=== PATIENT | male | born 1950 | race Caucasian/White ===

== ENCOUNTER 2019-03-14 15:22 | Emergency (ER) | payer OTHER ==
[~2019-03-14] VITALS: Ht 172.7 cm; Wt 108.9 kg
[2019-03-14 15:40] VITALS: BP_SYST 114
--- NOTE | 2019-03-14 16:58 | NUR ---
Patient to ER bed 04 to gown for evaluation. Side rails up.
--- NOTE | 2019-03-14 17:00 | NUR ---
ER at bedside examining patient.
--- NOTE | 2019-03-14 17:15 | NUR ---
Patient presented to ER with C/O intermittent dizziness x 2 months. Patient A&Ox4, afebrile, skin pink &warm, cap refill <3, denies pain at this time, denied dizzines at this time, no N/V/D. Patient states he has had x2 episodes of dizziness today. Pstates intermittent dizziness x2 months, Pt seen by PMD consults arranged. Patient has hx of diabetes, HTN, and neuropathy.
[2019-03-14] MEDS ORDERED: IOHEXOL 350 mgI/mL, 150 ML INFUS..BTL IV ONE (17:22)
[2019-03-14 17:23] LABS: BASOPHILS # (AUTO) 0.1 K/uL (0.0-0.2); BASOPHILS % (AUTO) 1.2 % (0.0-2.0); EOSINOPHILS # (AUTO) 0.2 K/uL (0.0-0.4); EOSINOPHILS % (AUTO) 2.5 % (0.0-4.0); HEMATOCRIT 45.7 % (36-54); HEMOGLOBIN 15.2 g/dL (14.0-18.0); LYMPHOCYTES # (AUTO) 2.6 K/uL (1.0-5.5); LYMPHOCYTES % (AUTO) 42.4 % (20.5-51.5); MEAN CORPUSCULAR HEMOGLOBIN 31 pg (27-31); MEAN CORPUSCULAR HGB CONC 33 % (32-36); MEAN CORPUSCULAR VOLUME 93 fL (79.0-98.0); MONOCYTES # (AUTO) 0.6 K/uL (0.0-1.0); MONOCYTES % (AUTO) 9.9 % (1.7-9.3); NEUTROPHILS # (AUTO) 2.7 K/uL (1.8-7.7); PLATELET COUNT (AUTO) 172 K/uL (130-430); RED BLOOD CELL COUNT(AUTO) 4.94 MIL/uL (4.2-6.2); WHITE BLOOD COUNT (AUTO) 6.2 K/uL (4.8-10.8)
[2019-03-14 17:36] LABS: PROTHROMBIN TIME 9.6 SECS (9.5-12.5)
[2019-03-14 17:44] LABS: ALBUMIN 3.9 g/dL (3.4-4.8); CALCIUM 9.3 mg/dL (8.4-11.0); CREATININE 1.1 mg/dL (0.55-1.30); POTASSIUM 3.6 mmol/L (3.5-5.1); TOTAL BILIRUBIN 0.3 mg/dL (0.0-1.0)
--- NOTE | 2019-03-14 17:45 | NUR ---
CT consent obtained. Patient to Radiology with staff for CT
--- NOTE | 2019-03-14 18:24 | NUR ---
Note undone in EDM - 03/14/19 at 1837 by SDEDTDigna Patient to be transferred to [facility]. Is being transferred due to higher level of care. Receiving facility has accepting physician and available space. ER physician has signed transfer form. Patient or responsible green party has agreed to transfer and signed form. Patient belongings inventoried and will be sent with patient. Copy of nursing notes, lab reports, EKG, Physicians Orders and X-rays to be sent with patient. Report called to Delmy CHÁVEZ at receiving facility. Receiving physician is [facility] has been called for transfer. ETA is 90 min.
--- NOTE | 2019-03-14 18:35 | NUR ---
Patient to ER bed 4 from radiology via [facility].
[2019-03-14 19:12] VITALS: BP_SYST 131
--- NOTE | 2019-03-14 19:16 | NUR ---
Patient given written and verbal discharge instructions and verbalizes understanding. ER MD discussed with patient the results and treatment provided. Patient in stable condition. ID arm band removed. IV catheter removed intact and dressing applied, no active bleeding. Rx of Eliquis given. Patient educated on pain management and to follow up with PMD. Pain Scale 0/10. Opportunity for questions provided and answered. Medication side effect fact sheet provided.
== END 2019-03-14 19:16 | disposition home or self-care (01) ==
LOC: SED 15:22
DX: G45.0 Vertebro-basilar artery syndrome (principal); R42 Dizziness and giddiness; E11.9 Type 2 diabetes mellitus without complications; I10 Essential (primary) hypertension
CPT/HCPCS: 36415; 70450; 70496; 70498; 71045; 80053; 83880; 84484; 85025; 85379; 85610; 85730; 99284; Q9967; 71275

== ENCOUNTER 2019-07-10 19:13 | Inpatient (IN) | payer OTHER ==
[~2019-07-10] VITALS: Ht 172.7 cm; Wt 113.4 kg
[2019-07-10 20:05] VITALS: BP_SYST 162
--- NOTE | 2019-07-10 20:10 | NUR ---
Patient triaged and placed in waiting room. VSS and patient appears in no acute distress at this time. Accompanied by partner , awaiting available bed, and MD notified of need for MSE.
--- NOTE | 2019-07-10 22:58 | NUR ---
Patient to ER bed H1 to gown for evaluation. Side rails up.
--- NOTE | 2019-07-10 23:15 | NUR ---
Patient complains "gangrene" wound to second digit of right foot x 1 week. Pt states he has not been controlling his blood sugar and believes that's why his foot has been getting infected. Per patient, He noticed that there was a blister then progressively got worse. Pt used topical ointment with no healing. No other injuries/complaints per patient or noted.
--- NOTE | 2019-07-10 23:40 | NUR ---
ER Dr. Ramirez at bedside examining patient.
[2019-07-11 00:17] LABS: BASOPHILS % (AUTO) 0.4 % (0.0-2.0); EOSINOPHILS # (AUTO) 0.4 K/uL (0.0-0.4); EOSINOPHILS % (AUTO) 3.3 % (0.0-4.0); HEMATOCRIT 41.4 % (36-54); HEMOGLOBIN 13.5 g/dL (14.0-18.0); LYMPHOCYTES # (AUTO) 2.3 K/uL (1.0-5.5); LYMPHOCYTES % (AUTO) 19.8 % (20.5-51.5); MEAN CORPUSCULAR HEMOGLOBIN 31 pg (27-31); MEAN CORPUSCULAR HGB CONC 33 % (32-36); MEAN CORPUSCULAR VOLUME 96 fL (79.0-98.0); MONOCYTES % (AUTO) 9.1 % (1.7-9.3); NEUTROPHILS # (AUTO) 7.8 K/uL (1.8-7.7); NEUTROPHILS % (AUTO) 67.4 % (40.0-70.0); PLATELET COUNT (AUTO) 227 K/uL (130-430); RED CELL DISTRIBUTION WIDTH 13.6 % (9.0-15.0); WHITE BLOOD COUNT (AUTO) 11.5 K/uL (4.8-10.8)
[2019-07-11 00:36] LABS: CALCIUM 9.3 mg/dL (8.4-11.0); POTASSIUM 3.8 mmol/L (3.5-5.1)
[2019-07-11 00:38] LABS: PROTHROMBIN TIME 9.9 SECS (9.5-12.5)
[2019-07-11 00:42] LABS: ALBUMIN 3.5 g/dL (3.4-4.8); TOTAL BILIRUBIN 0.5 mg/dL (0.0-1.0)
[2019-07-11 00:56] LABS: BILIRUBIN,URINE NEGATIVE (NEGATIVE); BLOOD, URINE NEGATIVE (NEGATIVE); CLARITY/URINE CLEAR (CLEAR); COLOR,URINE YELLOW (YELLOW); GLUCOSE,URINE TRACE (NEGATIVE); KETONES,URINE NEGATIVE (NEGATIVE); LEUKOCYTE ESTERASE ,URINE NEGATIVE (NEGATIVE); NITRITE, URINE NEGATIVE (NEGATIVE); PROTEIN URINE TRACE (NEGATIVE); UROBILINOGEN,URINE 0.2 (0.2-1.0)
[2019-07-11 01:06] LABS: BACTERIA,URINE FEW /HPF (None Seen); RBC,URINE 0-3 /HPF (0-3); WBC,URINE 0-3 /HPF (0-3)
[2019-07-11] MEDS ORDERED: LISI10TA5 PO (02:33)
[2019-07-11] MEDS ORDERED: GLIM2TAB2 PO (02:33)
[2019-07-11] MEDS ORDERED: ASPI-1153 PO (02:34)
[2019-07-11] MEDS ORDERED: PRO40 PO (02:34)
--- NOTE | 2019-07-11 02:34 | NUR ---
Tyrone guerramynor in [facility] - 07/11/19 at 0337 by [email or web address] Patient was moved to bed 5 and gowned.
[2019-07-11] MEDS ORDERED: GLU500 PO (02:35)
--- NOTE | 2019-07-11 02:35 | NUR ---
Pt moved to bed 5
[2019-07-11] MEDS ORDERED: CETI-101 PO (02:36)
--- NOTE | 2019-07-11 02:37 | NUR ---
Medication reconciliation completed with information provided by patient. Any prior medication reconciliation on file was reviewed and corrected.
[2019-07-11] MEDS ORDERED: VANCOMYCIN HCL 1,000 MG in NS 250 ML IV ONE (02:45)
[2019-07-11] MEDS ORDERED: VANCOMYCIN HCL 1000 MG/VIAL IV ONE (03:09)
[2019-07-11] MEDS ORDERED: INSULIN ASPART 100 UNITS/ML, 10 ML VIAL (NovoLOG) SUBCUT PRN (03:15)
--- NOTE | 2019-07-11 03:36 | NUR ---
Patient will be admitted to care of Dr. Bucio. Admitted to Telemetry unit. Belongings list completed. Complete and up to date summary report printed. SBAR report to be given at bedside with opportunity for questions.
--- NOTE | 2019-07-11 03:40 | NUR ---
awaiting bed assignment.
--- NOTE | 2019-07-11 04:59 | NUR ---
Patient will be admitted and Will go to room 101 B. Complete and up to date summary report printed. SBAR report to be given at bedside with opportunity for questions.
[2019-07-11 05:18] VITALS: BP_SYST 139
--- NOTE | 2019-07-11 05:22 | NUR ---
CONSULTATION PAGED/CALLED Reason for Consultation: CELLULITIS Person Who was Notified: ESTELLE Consulting Physician: Music Adapter Specialty: Ordering Physician:
--- NOTE | 2019-07-11 05:50 | NUR ---
recieved reort from er nurse, patient a/o/x/4, respirations even and unlabored,room air, saline lock patent ;intact to lac,right foot with drsg in place, noted 2nd toe ot right foot black and covered with clean dry drsg, no drainage, does have foul odor, denies pain, states hungry given orange juice to eat and drink, @ bedside, resting quietly in bed with yes closed, easily aroused, will continue to monitor and endorse to on coming rn.
[2019-07-11] MEDS ORDERED: NS 1000 ML IV.SOLN IV ONE (07:30)
[2019-07-11] MEDS ORDERED: KETOROLAC TROMETHAMINE 30 MG VIAL IVP ONE (07:30)
[2019-07-11] MEDS ORDERED: NS IRRIG SOLN 1000 ML IR ONE (07:30)
[2019-07-11] MEDS ORDERED: PROPOFOL 200MG/ 20ML VIAL (DIPRIVAN) IV ONE (07:30)
[2019-07-11] MEDS ORDERED: ONDANSETRON HCL 4 MG/2 ML VIAL IVP ONE (07:30)
[2019-07-11] MEDS ORDERED: ISOFLURANE 15 MIN GAS INH ONE (07:30)
[2019-07-11] MEDS ORDERED: fentaNYL CITRATE/PF 100 MCG/2 ML AMP IVP ONE (07:30)
[2019-07-11 08:00] VITALS: BP_SYST 140
[2019-07-11 12:00] VITALS: BP_SYST 142
--- NOTE | 2019-07-11 12:27 | NUR ---
WOUND EVALUATION: Late note for 1227 secondary to patient care. Wound Consult received from Dr. Bucio. Thank you, Dr. Bucio, for the consult. Patient received in a [place] Bed with a mattress, awake, alert, and oriented. Patient is unable to turn independently. Marty Score is a 19. Past Medical History: Diabetes Mellitus, Hypertension, history of TIA, Correction of Deviated Septum. Recent labs: WBC 11.5, RBC 4.30, hemoglobin 13.5, hematocrit 41.4, BUN 26, creatinine 1.00, GFR 79, glucose 186, POC glucose 228. Microbiology: Blood culture results 2 in progress. Intrinsic factors that delay wound healing: Diabetes Mellitus, Hyperglycemia. Extrinsic factors that delay wound healing: Decreased mobility. Wound Assessment: 1. Right Second Toe: Diabetic ulcer, present on admission. Wound bed has 95% black gangrenous tissue, 5% red tissue at anterior edge of gangrenous area. Foul odor, scant yellow purulent drainage. Periwound intact. Dorsal foot has 2+ pitting edema, calor, and erythema. Site measures 3.8 cm x 2.0 cm. Recommend: Cleanse wound with normal saline. Apply SurePrep to vamsi-wound. Apply Venelex ointment to wound bed. Cover with foam dressing, to size. Wrap with Mariaelena wrap. Perform wound care daily, and as needed for dressing soiling or dislodgement. Also recommend: Encourage and assist patient as needed with repositioning every 2 hours with pillow support and off-load pressure areas with pillows for pressure re-distribution. Offload, elevate and float bilateral heels with pillows. Perform skin care and monitor skin integrity Q shift. Recommend surgical consult. Dr. Ortiz is on consult.
--- NOTE | 2019-07-11 14:00 | NUR ---
CONSULTATION PAGED REASON FOR CONSULTATION:DEBRIDEMENT/SURGERY WAS CONSULT CALLED?Y PERSON WHO WAS NOTIFIED:GEMMA CONSULTING PHYSICIAN:SAMANTHA CURRIE FIBER [employer]IC CENTRAL OFFICE INSTALLER SPECIALTY:SURGEON FIBER [employer] CENTRAL OFFICE INSTALLER PHONE NUMBER:[phone] REQUESTING PHYSICIAN:MARIA C RICCI
[2019-07-11] MEDS ORDERED: INSULIN GLARGINE 100 UNITS/ML 10 ML VIAL SUBCUT ONE ×2 (14:30→21:30)
[2019-07-11] MEDS ORDERED: AMPICILLIN SODIUM/SULBACTAM NA 3 GM in NS 100 ML IV ONE (14:30)
[2019-07-11] MEDS: ACETAMINOPHEN 325 MG TABLET PO PRN (15:46)
[2019-07-11 16:00] VITALS: BP_SYST 140
[2019-07-11] MEDS ORDERED: metFORMIN HCL 500 MG TABLET PO SCH (18:00)
[2019-07-11] MEDS ORDERED: AMPICILLIN SODIUM/SULBACTAM NA 3 GM in NS 100 ML IV SCH (18:00)
[2019-07-11 20:00] VITALS: BP_SYST 137
--- NOTE | 2019-07-11 20:00 | NUR ---
RECEIVED PT IN BED V/S AND ASSESSMENT DONE SAME STABLE NO DISTRESS NOTED IV MEDS GIVEN , AT BEDSIDE ,NO DISTRESS NOTED AT THIS TIME
[2019-07-11] MEDS: LINEZOLID 300 ML IV SCH (20:37)
[2019-07-11] MEDS: INSULIN LISPRO SLIDING SCALE 100 UNITS/ML VIAL (humaLOG) SUBCUT PRN (21:13)
[2019-07-11] MEDS: PIPERACILLIN/TAZO 4.5GM/DEX-IS 100 ML IV SCH (21:37)
[2019-07-12] VITALS: BP_SYST 130
--- NOTE | 2019-07-12 | NUR ---
PT ASLEEP IN NO DISTRESS
[2019-07-12] MEDS: PIPERACILLIN/TAZO 4.5GM/DEX-IS 100 ML IV SCH ×3 (06:17→20:30)
[2019-07-12] MEDS: INSULIN LISPRO SLIDING SCALE 100 UNITS/ML VIAL (humaLOG) SUBCUT PRN ×3 (06:21→20:29)
[2019-07-12 07:17] LABS: BASOPHILS % (AUTO) 0.5 % (0.0-2.0); EOSINOPHILS # (AUTO) 0.2 K/uL (0.0-0.4); EOSINOPHILS % (AUTO) 2.3 % (0.0-4.0); HEMATOCRIT 36.5 % (36-54); HEMOGLOBIN 12.4 g/dL (14.0-18.0); LYMPHOCYTES # (AUTO) 2.2 K/uL (1.0-5.5); LYMPHOCYTES % (AUTO) 22.3 % (20.5-51.5); MEAN CORPUSCULAR HEMOGLOBIN 32 pg (27-31); MEAN CORPUSCULAR HGB CONC 34 % (32-36); MEAN CORPUSCULAR VOLUME 94 fL (79.0-98.0); MONOCYTES # (AUTO) 0.9 K/uL (0.0-1.0); MONOCYTES % (AUTO) 9.8 % (1.7-9.3); NEUTROPHILS # (AUTO) 6.3 K/uL (1.8-7.7); NEUTROPHILS % (AUTO) 65.1 % (40.0-70.0); PLATELET COUNT (AUTO) 208 K/uL (130-430); RED BLOOD CELL COUNT(AUTO) 3.88 MIL/uL (4.2-6.2); RED CELL DISTRIBUTION WIDTH 13.1 % (9.0-15.0); WHITE BLOOD COUNT (AUTO) 9.6 K/uL (4.8-10.8)
[2019-07-12 07:45] LABS: ALBUMIN 2.9 g/dL (3.4-4.8); CALCIUM 8.5 mg/dL (8.4-11.0); CREATININE 0.89 mg/dL (0.55-1.30); POTASSIUM 3.4 mmol/L (3.5-5.1); THYROID STIMULATING HORMONE 1.46 uIu/mL (0.36-3.74); TOTAL BILIRUBIN 0.5 mg/dL (0.0-1.0)
[2019-07-12 08:00] VITALS: BP_SYST 144
[2019-07-12] MEDS ORDERED: GLIMEPIRIDE 2 MG TABLET PO SCH (09:00)
[2019-07-12] MEDS: BALSAM PERU/CASTOR OIL 60 GM OINT...G. TP SCH (09:00)
[2019-07-12] MEDS ORDERED: POTASSIUM CHLORIDE 10 MEQ TAB.PRT.SR PO ONE (09:45)
[2019-07-12] MEDS: ACETAMINOPHEN 325 MG TABLET PO PRN (11:06)
[2019-07-12] MEDS: LISINOPRIL 10 MG TABLET (PRINIVIL) PO SCH (11:12)
[2019-07-12] MEDS: ASPIRIN 81 MG TABLET(ECOTRIN) PO SCH (11:12)
[2019-07-12] MEDS: LINEZOLID 300 ML IV SCH ×2 (11:13→20:30)
[2019-07-12] MEDS: PANTOPRAZOLE SODIUM 40 MG TAB PO SCH (11:13)
[2019-07-12] MEDS ORDERED: INSULIN GLARGINE 100 UNITS/ML 10 ML VIAL SUBCUT ONE (14:15)
--- NOTE | 2019-07-12 15:41 | NUR ---
Dietitian Recommendations * Recommend CCHO, cardiac diet w/ Glucerna BID, Manpreet BID (supplements provide an additional ~620 kcal/day, 25 gm protein/day) TARUN CRYSTAL Please refer to Nutrition Assessment for details. Addendum: 07/12/19 at [address] Amended: Links added.
[2019-07-12 20:00] VITALS: BP_SYST 130
--- NOTE | 2019-07-12 20:00 | NUR ---
received pt in bed v/s and assessment done same stable ,iv meds given , at bedside,no distress noted
[2019-07-12] MEDS ORDERED: INSULIN GLARGINE 100 UNITS/ML 10 ML VIAL SUBCUT SCH (21:00)
[2019-07-13] VITALS: BP_SYST 140
--- NOTE | 2019-07-13 | NUR ---
pt iv meds completed repositioned made comfortable ,no complaints noted pt rseting in no distress at this time
[2019-07-13 04:00] VITALS: BP_SYST 120
[2019-07-13] MEDS: PIPERACILLIN/TAZO 4.5GM/DEX-IS 100 ML IV SCH ×3 (05:48→20:06)
[2019-07-13] MEDS: INSULIN LISPRO SLIDING SCALE 100 UNITS/ML VIAL (humaLOG) SUBCUT PRN ×4 (05:51→20:03)
--- NOTE | 2019-07-13 07:30 | NUR ---
RECEIVED AWAKE AND IN NO C/O DISCOMFORT.VSS TELE SR.RT FOOT WITH 2ND TOE BLACK AND DRSG INTACT.RESP EVEN AND UNLABORED CONTINUE TO MONITOR AND CALL PENDLETON IN PLACE
[2019-07-13 08:00] VITALS: BP_SYST 140
[2019-07-13] MEDS: ACETAMINOPHEN 325 MG TABLET PO PRN (08:07)
[2019-07-13] MEDS: LINEZOLID 300 ML IV SCH ×2 (08:48→20:05)
[2019-07-13] MEDS: ASPIRIN 81 MG TABLET(ECOTRIN) PO SCH (08:48)
[2019-07-13] MEDS: PANTOPRAZOLE SODIUM 40 MG TAB PO SCH (08:49)
[2019-07-13] MEDS: LISINOPRIL 10 MG TABLET (PRINIVIL) PO SCH (08:49)
--- NOTE | 2019-07-13 09:00 | NUR ---
PT REPORTED THAT HE HAD A TIA EPISODE AT [address] MANLEY WHEN HE MADE ROUNDS TO EVALUATE FOR SURGERY.REPORTED HE BLACK OUT A COUPLE SECONDS AND SLIGHT DIZZINESS.VSS AT 0700 WHEN CHECKED AND NO REPORTS OF ANYTHING UNUSUAL.TELE WAS ST [address] AT THAT TIME.BS WAS ALSO NOT LOW.DR PAYAN PAGED ABOUT THE TIA REPORTED BY PT AND WILL ORDER CT HEAD AND NEURO CONSULT.WILL CONTINUE TO MONITOR FOR ANY MORE TIAS OR ANY OTHER SYMPTOMS.NEURO CHECKS AT THIS TIME ALSO NORMAL.
[2019-07-13] MEDS: BALSAM PERU/CASTOR OIL 60 GM OINT...G. TP SCH (10:20)
--- NOTE | 2019-07-13 10:30 | NUR ---
CONSULTATION PAGED REASON FOR CONSULTATION: TIA, DM, PRIOR H/O MULTIPLE TIA'S WAS CONSULT CALLED?Y PERSON WHO WAS NOTIFIED:SSUI CONSULTING PHYSICIAN:BIA MIKE (CELESTINA PATTON PAINT STOCKMAN) PHARMACY OPERATIONS COORDINATOR SPECIALTY:NEURO PHARMACY OPERATIONS COORDINATOR PHONE NUMBER:[phone] REQUESTING PHYSICIAN:MARIA C RICCI
[2019-07-13 12:00] VITALS: BP_SYST 134
[2019-07-13 16:44] VITALS: BP_SYST 132
--- NOTE | 2019-07-13 18:32 | NUR ---
has had no further episodes of tia reported all day.vss resp even and unlabored no c/o pain up amb to br.drsg to rt ft toe intact.taking diet well.bs covered per ss.continue to monitor.call shirley in place
--- NOTE | 2019-07-13 19:14 | NUR ---
REPORT TO NT SHIFT GIVEN
[2019-07-13] MEDS: INSULIN GLARGINE 100 UNITS/ML 10 ML VIAL SUBCUT SCH (20:04)
[2019-07-14 01:04] VITALS: BP_SYST 129
[2019-07-14 04:00] VITALS: BP_SYST 130
[2019-07-14] MEDS: PIPERACILLIN/TAZO 4.5GM/DEX-IS 100 ML IV SCH ×3 (05:38→21:41)
[2019-07-14 08:11] LABS: ALBUMIN 2.7 g/dL (3.4-4.8); CALCIUM 8.4 mg/dL (8.4-11.0); CREATININE 0.99 mg/dL (0.55-1.30); POTASSIUM 3.6 mmol/L (3.5-5.1); TOTAL BILIRUBIN 0.5 mg/dL (0.0-1.0)
[2019-07-14 08:15] VITALS: BP_SYST 122
[2019-07-14] MEDS: ASPIRIN 81 MG TABLET(ECOTRIN) PO SCH ×2 (09:00→09:23)
[2019-07-14] MEDS: LINEZOLID 300 ML IV SCH ×2 (09:20→20:01)
[2019-07-14] MEDS: LISINOPRIL 10 MG TABLET (PRINIVIL) PO SCH (09:21)
[2019-07-14] MEDS: PANTOPRAZOLE SODIUM 40 MG TAB PO SCH (09:21)
--- NOTE | 2019-07-14 09:29 | NUR ---
Routine Scheduled medications given per order. Patient resting comfortably in bed with no distress noted. Patient stable at this time.
[2019-07-14] MEDS: BALSAM PERU/CASTOR OIL 60 GM OINT...G. TP SCH (11:09)
--- NOTE | 2019-07-14 11:10 | NUR ---
Routine Wound care: wound on right second toe cleansed with NS, venelex ointment applied to wound; wound covered with gauze and wrapped with kerlix. Patient tolerated well.
--- NOTE | 2019-07-14 11:32 | NUR ---
Routine Checked blood sugar: 331 mg/dl - will cover per sliding scale. Patient stable. Addendum: 07/14/19 at 1148 by Fiona Vela RN Patient ambulated to bathroom and back to bed. Addendum: 07/14/19 at 1235 by Fiona Vela RN Covered per sliding scale.
[2019-07-14] MEDS: INSULIN LISPRO SLIDING SCALE 100 UNITS/ML VIAL (humaLOG) SUBCUT PRN ×3 (12:26→20:05)
[2019-07-14 12:30] VITALS: BP_SYST 155
--- NOTE | 2019-07-14 14:52 | NUR ---
Routine Scheduled IV abx given per order. Patient stable at this time.
--- NOTE | 2019-07-14 17:04 | NUR ---
Clinical Research Coordinator:met with pt. for a DCPA FRENCH WEAVER met with pt. He was able to fully participate in the interview. FRENCH WEAVER entered info for the DCPA. FRENCH WEAVER also made a note that pt. stated he ran out of testing strips to test his sugar lever. Pt. stated he was going to have his toe amputated. Pt. denied feeling depressed anxious or having any other mental disorders. Pt. thanked FRENCH WEAVER. FRENCH WEAVER will remain available as needed.
--- NOTE | 2019-07-14 17:23 | NUR ---
Cardiac consult called: for Dr. Galvan (Dr. Mayers correction officer supervisor), regarding preoperative cardiac clearance, ordered by Dr. Bucio
[2019-07-14 19:00] VITALS: BP_SYST 147
--- NOTE | 2019-07-14 20:00 | NUR ---
received pt in bed at bedside no distress noted ,v/s and assessment done,meds given .
[2019-07-14] MEDS: INSULIN GLARGINE 100 UNITS/ML 10 ML VIAL SUBCUT SCH (20:09)
--- NOTE | 2019-07-15 | NUR ---
pt resting in no distress
[2019-07-15 01:22] VITALS: BP_SYST 153
[2019-07-15] MEDS: HYDROcodone/ACETAMIN 5-325 MG TAB (NORCO/ VICODIN) PO PRN (02:34)
[2019-07-15 04:00] VITALS: BP_SYST 150
[2019-07-15] MEDS: PIPERACILLIN/TAZO 4.5GM/DEX-IS 100 ML IV SCH (05:00)
[2019-07-15] MEDS: INSULIN LISPRO SLIDING SCALE 100 UNITS/ML VIAL (humaLOG) SUBCUT PRN ×3 (05:04→20:37)
[2019-07-15 08:00] VITALS: BP_SYST 149
--- NOTE | 2019-07-15 08:00 | NUR ---
ASSUMPTION OF CARE: RECEIVED PT A/A/OX4, DX:RISK FOR INJURY, R/T CELLULITIS, R/O SEPSIS, NO S/S OF DISTRESS, NO C/O PAIN OR DISCOMFORT, BREATH SOUNDS ARE CLEAR, BREATHING UNLABORED, AFEBRILE, IV SITE INTACT, PATENT, NO REDNESS OR SWELLING, ORIENTED TO UNIT, CALL LIGHT PLACED WITHIN REACH, WILL CONT' TO MONITOR AND ASSESS.
[2019-07-15] MEDS: BALSAM PERU/CASTOR OIL 60 GM OINT...G. TP SCH (09:00)
[2019-07-15] MEDS: LINEZOLID 300 ML IV SCH ×2 (09:00→20:38)
[2019-07-15] MEDS: PANTOPRAZOLE SODIUM 40 MG TAB PO SCH (09:00)
[2019-07-15] MEDS: ATORVASTATIN 20 MG TABLET PO SCH (09:00)
[2019-07-15] MEDS: ASPIRIN 81 MG TABLET(ECOTRIN) PO SCH (09:00)
[2019-07-15] MEDS: LISINOPRIL 10 MG TABLET (PRINIVIL) PO SCH (09:00)
--- NOTE | 2019-07-15 09:00 | NUR ---
HYPERCIL CORE TRANSFORMER ASSEMBLER: MORNING MEDS GIVEN, PER ORDERED BY Sreedhar, TOLERATED WELL, WILL CONT' TO MONITOR AND ASSESS.
--- NOTE | 2019-07-15 11:30 | NUR ---
GLUCOSE MONITORING: BLOOD SUGAR [id number], 4 UNITS HUMALOG GIVEN SQ, TOLERATED WELL, WILL CONT' WITH POC.
[2019-07-15 12:00] VITALS: BP_SYST 164
[2019-07-15 12:43] LABS: BASOPHILS # (AUTO) 0.1 K/uL (0.0-0.2); BASOPHILS % (AUTO) 1.1 % (0.0-2.0); EOSINOPHILS # (AUTO) 0.2 K/uL (0.0-0.4); EOSINOPHILS % (AUTO) 3.5 % (0.0-4.0); HEMATOCRIT 38.3 % (36-54); HEMOGLOBIN 12.7 g/dL (14.0-18.0); LYMPHOCYTES # (AUTO) 1.7 K/uL (1.0-5.5); LYMPHOCYTES % (AUTO) 28.6 % (20.5-51.5); MEAN CORPUSCULAR HEMOGLOBIN 32 pg (27-31); MEAN CORPUSCULAR HGB CONC 33 % (32-36); MEAN CORPUSCULAR VOLUME 95 fL (79.0-98.0); MONOCYTES # (AUTO) 0.5 K/uL (0.0-1.0); MONOCYTES % (AUTO) 7.9 % (1.7-9.3); NEUTROPHILS # (AUTO) 3.6 K/uL (1.8-7.7); NEUTROPHILS % (AUTO) 58.9 % (40.0-70.0); PLATELET COUNT (AUTO) 219 K/uL (130-430); RED BLOOD CELL COUNT(AUTO) 4.02 MIL/uL (4.2-6.2); RED CELL DISTRIBUTION WIDTH 13.5 % (9.0-15.0); WHITE BLOOD COUNT (AUTO) 6.1 K/uL (4.8-10.8)
[2019-07-15 13:43] LABS: ERYTHROCYTE SEDIMENTATION RATE 81 MM/HR (0-15)
[2019-07-15 16:00] VITALS: BP_SYST 119
--- NOTE | 2019-07-15 16:56 | NUR ---
SAMANTHA TALAMANTES AT [phone] SPOKE WITH WATSON.
--- NOTE | 2019-07-15 17:00 | NUR ---
GLUCOSE MONITORING: BLOOD SUGAR [id number], 4 UNITS HUMALOG GIVEN SQ, TOLERATED WELL, WILL CONT' WITH POC.
[2019-07-15] MEDS: cefTRIAXone 1 GM in D5W 50 ML IV SCH (18:24)
[2019-07-15 20:00] VITALS: BP_SYST 147
--- NOTE | 2019-07-15 20:00 | NUR ---
RECEIVED PT IN BED WITH AT BEDSIDE V/S AND ASSESSMENT DONE SAME STABLE ,ACCU CHECK DONE MEDS GIVEN ,NO DISTRESS NOTED AT THIS TIME .PT FOR SURGERY IN AM ,NPO AFTER BREAKFAST.
[2019-07-15] MEDS: INSULIN GLARGINE 100 UNITS/ML 10 ML VIAL SUBCUT SCH (20:36)
[2019-07-16 00:02] VITALS: BP_SYST 141
[2019-07-16 04:00] VITALS: BP_SYST 138
[2019-07-16] MEDS: INSULIN LISPRO SLIDING SCALE 100 UNITS/ML VIAL (humaLOG) SUBCUT PRN ×3 (06:17→21:08)
[2019-07-16] MEDS: ACETAMINOPHEN 325 MG TABLET PO PRN (06:20)
[2019-07-16 08:00] VITALS: BP_SYST 131
[2019-07-16] MEDS: ASPIRIN 81 MG TABLET(ECOTRIN) PO SCH (09:00)
--- NOTE | 2019-07-16 09:00 | NUR ---
EXTERIOR WORK HELPER: MORNING MEDS GIVEN, PER ORDERED BY Sreedhar, TOLERATED WELL, WILL CONT' TO MONITOR AND ASSESS.
[2019-07-16] MEDS: PANTOPRAZOLE SODIUM 40 MG TAB PO SCH (09:35)
[2019-07-16] MEDS: LINEZOLID 300 ML IV SCH ×2 (09:35→21:09)
[2019-07-16] MEDS: ATORVASTATIN 20 MG TABLET PO SCH (09:36)
[2019-07-16] MEDS: LISINOPRIL 10 MG TABLET (PRINIVIL) PO SCH (09:36)
[2019-07-16] MEDS: BALSAM PERU/CASTOR OIL 60 GM OINT...G. TP SCH (09:37)
[2019-07-16] MEDS: HYDROcodone/ACETAMIN 5-325 MG TAB (NORCO/ VICODIN) PO PRN (09:37)
--- NOTE | 2019-07-16 11:30 | NUR ---
GLUCOSE MONITORING: BLOOD SUGAR [id number], 4 UNITS HUMALOG GIVEN SQ, TOLERATED WELL, WILL CONT' WITH POC.
[2019-07-16 12:00] VITALS: BP_SYST 145
[2019-07-16] MEDS: cefTRIAXone 1 GM in D5W 50 ML IV SCH (12:00)
[2019-07-16 16:00] VITALS: BP_SYST 160
--- NOTE | 2019-07-16 17:00 | NUR ---
GLUCOSE MONITORING: BLOOD SUGAR [id number], NO COVERAGE GIVEN, TOLERATING WELL, WILL CONT' WITH POC.
[2019-07-16 20:00] VITALS: BP_SYST 119
--- NOTE | 2019-07-16 20:00 | NUR ---
RECEIVED PT IN BED V/S AND ASSESSMENT DONE SAME STABLE ,IV MEDS GIVEN ,IV RESITED LT HAND ,PM CARE GIVEN MADE COMFORTABLE, AT BEDSIDE
[2019-07-16] MEDS: INSULIN GLARGINE 100 UNITS/ML 10 ML VIAL SUBCUT SCH (21:07)
[2019-07-17] VITALS: BP_SYST 112
--- NOTE | 2019-07-17 | NUR ---
PT NPO FOR SURGERY THIS AM
--- NOTE | 2019-07-17 04:00 | NUR ---
PI RESTING IN NO DISTRESS AT THIS TIME REMAINS NPO FOR SURGERY THIS AM ,
[2019-07-17 04:48] VITALS: BP_SYST 119
[2019-07-17] MEDS: INSULIN LISPRO SLIDING SCALE 100 UNITS/ML VIAL (humaLOG) SUBCUT PRN ×4 (05:34→21:22)
[2019-07-17 07:10] LABS: BASOPHILS # (AUTO) 0.1 K/uL (0.0-0.2); BASOPHILS % (AUTO) 1.2 % (0.0-2.0); EOSINOPHILS # (AUTO) 0.3 K/uL (0.0-0.4); EOSINOPHILS % (AUTO) 4.3 % (0.0-4.0); HEMATOCRIT 38.9 % (36-54); HEMOGLOBIN 13.1 g/dL (14.0-18.0); LYMPHOCYTES # (AUTO) 2.1 K/uL (1.0-5.5); LYMPHOCYTES % (AUTO) 31.6 % (20.5-51.5); MEAN CORPUSCULAR HEMOGLOBIN 32 pg (27-31); MEAN CORPUSCULAR HGB CONC 34 % (32-36); MEAN CORPUSCULAR VOLUME 95 fL (79.0-98.0); MONOCYTES # (AUTO) 0.4 K/uL (0.0-1.0); MONOCYTES % (AUTO) 6.7 % (1.7-9.3); NEUTROPHILS # (AUTO) 3.7 K/uL (1.8-7.7); NEUTROPHILS % (AUTO) 56.2 % (40.0-70.0); PLATELET COUNT (AUTO) 239 K/uL (130-430); WHITE BLOOD COUNT (AUTO) 6.5 K/uL (4.8-10.8)
[2019-07-17 07:13] LABS: ALBUMIN 2.8 g/dL (3.4-4.8); CREATININE 1.1 mg/dL (0.55-1.30); POTASSIUM 3.9 mmol/L (3.5-5.1); TOTAL BILIRUBIN 0.4 mg/dL (0.0-1.0)
--- NOTE | 2019-07-17 07:25 | NUR ---
AM ASSESSMENT. PT ALERT, SPOUSE AT BEDSIDE, O.R. STAFF CAME IN AND TRANSPORTED PT VIA BED TO O.R.
[2019-07-17 07:53] LABS: PROTHROMBIN TIME 10.3 SECS (9.5-12.5)
[2019-07-17] MEDS ORDERED: ONDANSETRON HCL 4 MG/2 ML VIAL IVP PRN (08:00)
[2019-07-17] MEDS ORDERED: MORPHINE 4 MG/ML INJ. SYRINGE IVP PRN (08:00)
[2019-07-17] MEDS ORDERED: HYDROmorphone 1 MG INJ. 1 MG/ML AMPUL IVP PRN (08:30)
[2019-07-17] MEDS: BALSAM PERU/CASTOR OIL 60 GM OINT...G. TP SCH (09:00)
--- NOTE | 2019-07-17 09:05 | NUR ---
TO MST. RECEIVED PT FROM RECOVERY ROOM, PT ALERT, DRESSING TO RIGHT FOOT CLEAN AND DRY, ELEVATED ON PILLOW TO PREVENT EDEMA, SKIN COLOR TO FOOT GOOD, WARM TO TOUCH.
[2019-07-17] MEDS: ASPIRIN 81 MG TABLET(ECOTRIN) PO SCH (09:30)
[2019-07-17] MEDS: LINEZOLID 300 ML IV SCH ×2 (09:30→21:19)
[2019-07-17] MEDS: LISINOPRIL 10 MG TABLET (PRINIVIL) PO SCH (09:31)
[2019-07-17] MEDS: ATORVASTATIN 20 MG TABLET PO SCH (09:31)
[2019-07-17] MEDS: PANTOPRAZOLE SODIUM 40 MG TAB PO SCH (09:31)
[2019-07-17] MEDS: ACETAMINOPHEN 325 MG TABLET PO PRN (09:42)
--- NOTE | 2019-07-17 11:48 | NUR ---
WOUND RE-EVALUATION: Late note for 114 secondary to patient care. Patient received in a Syed Bed with an IsoFlex JOYCE mattress, awake, alert, and oriented. Patient is able to turn in bed independently. Marty Score is a 17. Microbiology: Blood culture results 2 in progress. Intrinsic factors that delay wound healing: Diabetes Mellitus, Hyperglycemia. Extrinsic factors that delay wound healing: Decreased mobility. Wound Assessment: 1. 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 Patient is status post amputation today by Dr. Ortiz. Foot has (decreased) mild edema, mild calor, and decreased erythema. Surgical dressing is clean, dry and intact. Orders received from Dr. Ortiz (Start 07/18/19, and continue at home): Cleanse wound with normal saline. Apply SurePrep to vamsi-wound. Cover amputation site with xeroform dressing. Cover with gauze. Wrap with danuta wrap and secure with tape. Cover with foam dressing, to size. Wrap with Danuta wrap. Perform wound care daily, and as needed for dressing soiling or dislodgement. Dr. Ortiz ordered: Non-weight bearing for two weeks, cast shoe and axillary crutches. Follow up with Dr. Ortiz in one week. Sutures to be removed by Dr. Ortiz in 2-3 weeks Also recommend: Encourage and assist patient as needed with repositioning every 2 hours with pillow support and off-load pressure areas with pillows for pressure re-distribution. Offload, elevate and float bilateral heels with pillows. Perform skin care and monitor skin integrity Q shift.
[2019-07-17] MEDS: cefTRIAXone 1 GM in D5W 50 ML IV SCH (11:50)
[2019-07-17 12:00] VITALS: BP_SYST 139
--- NOTE | 2019-07-17 12:48 | NUR ---
STATUS CHANGE. DOWN GRADED PT TO MED SURG STATUS.
[2019-07-17 16:00] VITALS: BP_SYST 160
--- NOTE | 2019-07-17 18:37 | NUR ---
NURSING. NEEDS ASSESSED AND ATTENDED, NO COMPLAINTS OF PAIN, NO NAUSEA, DINNER TRAY SERVED.
--- NOTE | 2019-07-17 19:15 | NUR ---
OPENING NOTES Bedside report received from dayshift nurse. Patient received sitting up in bed, eating dinner. No s/s of acute distress noted. Patient denies any pain or discomfort noted. Right foot elevated with pillow. IV site patent, no signs of infiltration or infection noted. Skin warm and dry to touch, no s/s of hypoglycemia noted. Call light with patient. Will continue to monitor.
[2019-07-17 20:00] VITALS: BP_SYST 140
--- NOTE | 2019-07-17 21:15 | NUR ---
MEDPASS/EDUCATION: 3 POINT GAIT WITH FWW/REFUSES BED ALARM Scheduled medications administered at this time. Accu check done, BS at 198, 2 units of Humalog administered per sliding scale. IV antibiotic infusing. IV site patent, no signs of infiltration or infection noted. Patient denies pain at this time. No signs of discomfort noted. Chest rise and fall even bilaterally. Patient educated on Doctor Diana's post-op order to not bear weight on right foot. Patient educated on proper use of walker, three point gait. Patient verbalized understanding and demonstrated back proper use. Call light with patient, demonstrated back proper use. Patient refuses bed alarm despite being educated on its purpose and benefits, will continue to encourage throughout shift. Will continue to monitor.
[2019-07-17] MEDS: INSULIN GLARGINE 100 UNITS/ML 10 ML VIAL SUBCUT SCH (21:21)
--- NOTE | 2019-07-17 23:00 | NUR ---
WALKED TO BATHROOM Patient walked to bathroom with FWW, using 3 point gait, with minimal assistance. Patient tolerated well, walked back to bed. All needs met. Call light with patient. Will continue to monitor.
[2019-07-18] VITALS: BP_SYST 138
--- NOTE | 2019-07-18 01:00 | NUR ---
ROUNDS Patient in bed, asleep at this time. No signs of discomfort noted. Chest rise and fall even bilaterally. Call light with patient. Will continue to monitor.
--- NOTE | 2019-07-18 03:00 | NUR ---
ROUNDS Patient sleeping. No s/s of acute distress noted. Breathing even and unlabored. Call light with patient.
[2019-07-18] MEDS: INSULIN LISPRO SLIDING SCALE 100 UNITS/ML VIAL (humaLOG) SUBCUT PRN ×3 (06:22→17:53)
--- NOTE | 2019-07-18 06:49 | NUR ---
CLOSING NOTES Patient in bed, awake, no s/s of acute distress noted. Breathing even and unlabored. Patient denies pain at this time. IV site is patent, no signs of infiltration or infection noted. Skin warm and dry to touch, no s/s of hypoglycemia noted. Dressing on right 2nd toe intact, clean and dry, no signs of active bleeding noted. All needs met throughout shift. Fall and safety precautions maintained throughout shift. Will continue to monitor until patient care is endorsed to oncoming dayshift nurse.
[2019-07-18 06:53] LABS: BASOPHILS # (AUTO) 0.1 K/uL (0.0-0.2); BASOPHILS % (AUTO) 0.9 % (0.0-2.0); EOSINOPHILS # (AUTO) 0.3 K/uL (0.0-0.4); EOSINOPHILS % (AUTO) 3.1 % (0.0-4.0); HEMATOCRIT 37.4 % (36-54); HEMOGLOBIN 12.5 g/dL (14.0-18.0); LYMPHOCYTES # (AUTO) 2.3 K/uL (1.0-5.5); LYMPHOCYTES % (AUTO) 29.4 % (20.5-51.5); MEAN CORPUSCULAR HEMOGLOBIN 32 pg (27-31); MEAN CORPUSCULAR HGB CONC 34 % (32-36); MEAN CORPUSCULAR VOLUME 95 fL (79.0-98.0); MONOCYTES # (AUTO) 0.6 K/uL (0.0-1.0); MONOCYTES % (AUTO) 7.4 % (1.7-9.3); NEUTROPHILS # (AUTO) 4.7 K/uL (1.8-7.7); NEUTROPHILS % (AUTO) 59.2 % (40.0-70.0); PLATELET COUNT (AUTO) 229 K/uL (130-430); RED BLOOD CELL COUNT(AUTO) 3.93 MIL/uL (4.2-6.2); RED CELL DISTRIBUTION WIDTH 13.1 % (9.0-15.0)
[2019-07-18 07:13] LABS: ALBUMIN 2.8 g/dL (3.4-4.8); CALCIUM 8.3 mg/dL (8.4-11.0); CREATININE 1.23 mg/dL (0.55-1.30); POTASSIUM 3.9 mmol/L (3.5-5.1); TOTAL BILIRUBIN 0.5 mg/dL (0.0-1.0)
--- NOTE | 2019-07-18 07:38 | NUR ---
OPENING NOTE Patient resting in the bed. No acute distress. AAO x 4. Denied of pain. Skin warm and dry to touch. SL intact to left hand, no redness, no swelling, patent. Discussed the safety issue, use call light when needs help, and plan of care, verbally understanding. Safety measure maintained. Call light within reached. Bed locked in low position, side rails up. Refused bed alarm, risk and benefit explained, verbally understanding. Will continue to monitor.
[2019-07-18 07:40] VITALS: BP_SYST 135
[2019-07-18] MEDS: BALSAM PERU/CASTOR OIL 60 GM OINT...G. TP SCH (09:00)
[2019-07-18] MEDS: LISINOPRIL 10 MG TABLET (PRINIVIL) PO SCH (10:05)
[2019-07-18] MEDS: PANTOPRAZOLE SODIUM 40 MG TAB PO SCH (10:05)
[2019-07-18] MEDS: ASPIRIN 81 MG TABLET(ECOTRIN) PO SCH (10:05)
[2019-07-18] MEDS: ATORVASTATIN 20 MG TABLET PO SCH (10:05)
--- NOTE | 2019-07-18 10:05 | NUR ---
AM SCHEDULE MED GIVEN, TOLERATED WELL.
[2019-07-18 12:00] VITALS: BP_SYST 143
[2019-07-18] MEDS: cefTRIAXone 1 GM in D5W 50 ML IV SCH (12:03)
--- NOTE | 2019-07-18 12:05 | NUR ---
MU=[id number] Humalog insulin 2 units given per sliding scale. No acute distress. Safety measure maintained. Call light within reached. Continue to monitor.
--- NOTE | 2019-07-18 13:25 | NUR ---
WOUND RE-EVALUATION: Patient received in a Syed Bed with an IsoFlex JOYCE mattress, awake, alert, and oriented. Patient is able to turn in bed independently. Marty Score is a 17. Microbiology: Blood culture results 2 in progress. Intrinsic factors that delay wound healing: Diabetes Mellitus, Hyperglycemia. Extrinsic factors that delay wound healing: Decreased mobility. Wound Assessment: 1. 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 Patient is status post amputation on 07/17/[address] Ortiz. Amputation site is approximated with moist skin. Skin color is 90% pink, with 5% yellow tissue laterally, and 5% black/yellow tissue distally at end of incision. Foot has (decreased) mild edema, (decreased) mild calor, and decreased erythema. Black sutures present. Incision has scant sanguineous drainage. Recommend continue (here and at home): Cleanse wound with normal saline. Apply SurePrep to vamsi-wound. Cover amputation site with Xeroform dressing. Cover with gauze. Wrap with danuta wrap and secure with tape. Perform wound care daily, and as needed for dressing soiling or dislodgement. Patient's was present during wound care and understands how to apply the dressing, but would like to see it done one more time. Dr. Ortiz ordered: Non-weight bearing for two weeks, cast shoe and axillary crutches. Follow up with Dr. Ortiz in one week. Sutures to be removed by Dr. Ortiz in 2-3 weeks. Patient was given axillary crutches and they were adjusted for his height, but was a little unsteady and chose to use front wheel walker that was at bedside instead. Plan: Have patient try crutches again near discharge, if still unsteady, switch to front wheel walker for increased safety. Patient already has an orthopedic shoe with an open toe box area that is currently at bedside. Also recommend continue: Encourage and assist patient as needed with repositioning every 2 hours with pillow support and off-load pressure areas with pillows for pressure re-distribution. Offload, elevate and float bilateral heels with pillows. Perform skin care and monitor skin integrity Q shift. Addendum: 07/18/19 at 1643 by Tony King RN Addendum: Incision measures 5.0 cm x 3.0 cm in a near half-round flap.
--- NOTE | 2019-07-18 14:30 | NUR ---
CRUTCHES GIVEN TO THE PATIENT
--- NOTE | 2019-07-18 15:35 | NUR ---
RECEIVED THE CALL FROM MARIA C VILLANUEVA. Updated the patient's condition to Dr. Bucio. Per Dr. Bucio, make sure the patient received crutch and cast shoes before discharge. Told Dr. Bucio, patient has his own cast shoes and checked with Tony and that is the right one. Crutch already given to the patient and per patient knew hoe to use it. Dr. Bucio wanted to teach the patient blood sugar check and insulin administration and how to so it before discharge. Dr. Bucio said will come around one hour later.
--- NOTE | 2019-07-18 16:40 | NUR ---
SEEN AND EXAMINED BY MARIA C VILLANUEVA WITH ORDER RECEIVED.
--- NOTE | 2019-07-18 17:10 | NUR ---
USED CRUTCHES TO THE BATHROOM Patient able to use crutched to the bathroom, tolerated well. Dr. Bucio in the unit and make aware.
[2019-07-18 17:22] VITALS: BP_SYST 152
--- NOTE | 2019-07-18 17:58 | NUR ---
TEACHING Instructed the blood sugar check and insulin administration to the patient and the . Able to demonstrate back both procedure.
[2019-07-18 18:54] VITALS: BP_SYST 152
--- NOTE | 2019-07-18 19:20 | NUR ---
NEED PICTURE Per Tony, forgot to take picture when change dressing. Endorse to night nurse, will do it.
--- NOTE | 2019-07-22 14:27 | NUR ---
Discharge Follow Up Phone Call Phoned patient, . Patient stated he was doing okay. He has made a follow up appointment with surgeon Dr Ortiz for 07/24/[address] Flores in two weeks. Advised him to also make a follow up appointment with PCP, Dr Torres. He filled his prescriptions and is taking his medications as directed. The new insulin regimen is working. He significant other is managing the wound care without a problem. No questions or concerns.
== END 2019-07-18 19:15 | disposition home or self-care (01) | DRG 854 ==
LOC: SED 19:13 → STU 07-11 03:13 → SMU 07-17 12:48
PROVIDERS: ADMIT Internal Medicine; ATTEND Internal Medicine
PROC: 0Y6R0Z0 Detachment at Right 2nd Toe, Complete, Open Approach (ICD-10-PCS; principal; 2019-07-17 07:45)
DX: A41.9 Sepsis, unspecified organism (principal); E11.52 Type 2 diabetes mellitus with diabetic peripheral angiopathy with gangrene; L03.115 Cellulitis of right lower limb; I96 Gangrene, not elsewhere classified; E11.621 Type 2 diabetes mellitus with foot ulcer; E66.01 Morbid (severe) obesity due to excess calories; I10 Essential (primary) hypertension; E11.42 Type 2 diabetes mellitus with diabetic polyneuropathy; L97.519 Non-pressure chronic ulcer of other part of right foot with unspecified severity; Z86.73 Personal history of transient ischemic attack (TIA), and cerebral infarction without residual deficits; Z79.899 Other long term (current) drug therapy; Z68.38 Body mass index [BMI] 38.0-38.9, adult; Z79.82 Long term (current) use of aspirin; Z79.84 Long term (current) use of oral hypoglycemic drugs; Z79.4 Long term (current) use of insulin
CPT/HCPCS: 36415; 70450-TC; 71045; 80053; 80061; 81000-TC; 82962; 83036; 83605; 84443-TC; 85025; 85610-TC; 85651-TC; 85730-TC; 87040-TC; 87070-TC; 87075-TC; 87081; 88305; 88311; 93306; 93880; 93923; 93970; 96365; 96366; 99285; A6209; G0378; J0295; J0696; J1815; J1885; J2020; J2405; J2543; J2704; J3010; J3370; J7030; J7040; J7050; J7060; J7120

== ENCOUNTER 2023-04-16 14:40 | Observation (INO) | payer OTHER ==
[~2023-04-16] VITALS: Ht 172.7 cm; Wt 104.3 kg
[~2023-04-16 14:40] MED LIST: ASPI-1393 PO; CETI-80 PO; GLU500 PO; LISI10TA29 PO; PRO40 PO
[2023-04-16 14:50] VITALS: BP_SYST 133; PULSE 108; RESP 20; TEMP 98.1; O2SAT 97
[2023-04-16] MEDS ORDERED: ONDANSETRON HCL 4 MG/2 ML VIAL IVP ONE (15:00)
[2023-04-16] MEDS ORDERED: NACL 0.9% 1,000 ML IV ONE ×2 (15:00→16:30)
[2023-04-16 15:30] LABS: BASOPHILS % (AUTO) 0.2 % (0.0-2.0); HEMATOCRIT 44.4 % (36-54); HEMOGLOBIN 15.1 g/dL (14.0-18.0); LYMPHOCYTES # (AUTO) 2.2 K/uL (1.0-5.5); LYMPHOCYTES % (AUTO) 20.2 % (20.5-51.5); MEAN CORPUSCULAR HEMOGLOBIN 31 pg (27-31); MEAN CORPUSCULAR HGB CONC 34 % (32-36); MEAN CORPUSCULAR VOLUME 92 fL (79.0-98.0); MONOCYTES # (AUTO) 0.9 K/uL (0.0-1.0); NEUTROPHILS # (AUTO) 7.7 K/uL (1.8-7.7); NEUTROPHILS % (AUTO) 71.6 % (40.0-70.0); PLATELET COUNT (AUTO) 231 K/uL (130-430); RED BLOOD CELL COUNT(AUTO) 4.84 MIL/uL (4.2-6.2); RED CELL DISTRIBUTION WIDTH 13.3 % (9.0-15.0); WHITE BLOOD COUNT (AUTO) 10.7 K/uL (4.8-10.8)
[2023-04-16 15:39] LABS: ANION GAP 11 (5-15); CALCIUM 9.3 mg/dL (8.4-11.0); CARBON DIOXIDE 28 mmol/L (23-29); CHLORIDE 95 mmol/L (98-107); CREATININE 1.13 mg/dL (0.55-1.30); GLUCOSE 214 mg/dL (74-106); SODIUM SERUM 134 mmol/L (136-145); UREA NITROGEN, BLOOD 25 mg/dL (8-21)
[2023-04-16 15:40] LABS: GFR AFRICAN AMERICAN 83 mL/min (>90); GFR NON AFRICAN-AMERICAN 68 mL/min (>90); INR 1.1 (0.80-1.20)
[2023-04-16 15:47] LABS: BILIRUBIN,URINE NEGATIVE (NEGATIVE); COLOR,URINE YELLOW (YELLOW); GLUCOSE,URINE TRACE (NEGATIVE); KETONES,URINE TRACE (NEGATIVE); LEUKOCYTE ESTERASE ,URINE NEGATIVE (NEGATIVE); NITRITE, URINE NEGATIVE (NEGATIVE); PH,URINE 6.5 (5.0-8.0); PROTEIN URINE 2+ (NEGATIVE); UROBILINOGEN,URINE 0.2 (0.2-1.0)
[2023-04-16 15:57] LABS: ALANINE AMINOTRANSFERASE 24 U/L (12-78); ALBUMIN 3.4 g/dL (3.4-4.8); ASPARTATE AMINOTRANSFERASE 25 U/L (10-37); LIPASE 28 U/L (16-77); PHOSPHORUS 3.3 mg/dL (2.7-4.5); TOTAL BILIRUBIN 0.6 mg/dL (0.0-1.0); TOTAL PROTEIN, SERUM 7.3 g/dL (6.4-8.3)
[2023-04-16] MEDS ORDERED: POTASSIUM CHLORIDE 20 MEQ TABLET.ER PO ONE (16:00)
[2023-04-16 16:10] LABS: BLOOD, URINE TRACE (NEGATIVE); CLARITY/URINE SLIGHTLY HAZY (CLEAR)
[2023-04-16] MEDS ORDERED: MAGNESIUM SULFATE 50 ML IV ONE (16:30)
[2023-04-16 16:39] LABS: BACTERIA,URINE FEW /HPF (None Seen); RBC,URINE 0-3 /HPF (0-3); WBC,URINE 0-3 /HPF (0-3)
[2023-04-16 16:40] LABS: COARSE GRANULAR CASTS,URINE 0-10 /LPF (None Seen); HYALINE CASTS, URINE 0-10 /LPF (None Seen); MUCUS,URINE 2+ /LPF (None Seen)
[2023-04-16] MEDS ORDERED: INSU100V11 SQ (16:49)
[2023-04-16] MEDS ORDERED: LYR50 PO (16:49)
[2023-04-16] MEDS ORDERED: GABA-331 PO (16:49)
[2023-04-16] MEDS ORDERED: CLOP75TA32 PO (16:49)
[2023-04-16] MEDS ORDERED: LISI20TA30 PO (16:51)
[2023-04-16] MEDS: D5/0.45 NS 1,000 ML IV SCH (18:49)
[2023-04-17] MEDS: D5/0.45 NS 1,000 ML IV SCH ×3 (02:37→14:25)
[2023-04-17 08:20] VITALS: BP_SYST 125; PULSE 102; RESP 19; TEMP 97.3; O2SAT 95
[2023-04-17 11:21] VITALS: BP_SYST 148; PULSE 91; RESP 16; TEMP 98.9; O2SAT 96
[2023-04-17 15:20] VITALS: BP_SYST 156; PULSE 91; RESP 16; TEMP 98.3; O2SAT 97
[2023-04-17] MEDS: metFORMIN HCL 500 MG TABLET PO SCH (18:56)
[2023-04-17] MEDS ORDERED: GLUCOSE (DEXTROSE) ORAL GEL -Adults PO PRN (19:00)
[2023-04-17] MEDS ORDERED: DEXTROSE 50% JECT 50 ML DISP.SYRIN IVP PRN (19:00)
[2023-04-17] MEDS ORDERED: ONDANSETRON HCL 4 MG/2 ML VIAL IVP PRN (19:00)
[2023-04-17] MEDS ORDERED: D5W 1,000 ML IV PRN (19:00)
[2023-04-17 20:00] VITALS: BP_SYST 144; PULSE 84; RESP 18; TEMP 98.2; O2SAT 98
[2023-04-17] MEDS: INSULIN REGULAR, HUMAN 100 UNITS/ML, 3 ML VIAL (humuLIN R) SUBCUT PRN (20:20)
[2023-04-17] MEDS ORDERED: INSULIN GLARGINE 100 UNITS/ML, 10 ML VIAL SQ SCH (21:00)
[2023-04-18] VITALS (7 sets, daily range): BP systolic 134–168; PULSE 80–98; RESP 16–18; TEMP 96–99.1; O2SAT 94–99
[2023-04-18] MEDS: D5/0.45 NS 1,000 ML IV SCH (04:04)
[2023-04-18 05:28] LABS: BASOPHILS % (AUTO) 0.4 % (0.0-2.0); EOSINOPHILS # (AUTO) 0.1 K/uL (0.0-0.4); EOSINOPHILS % (AUTO) 0.8 % (0.0-4.0); HEMATOCRIT 40.3 % (36-54); HEMOGLOBIN 13.2 g/dL (14.0-18.0); LYMPHOCYTES # (AUTO) 2.8 K/uL (1.0-5.5); LYMPHOCYTES % (AUTO) 34.8 % (20.5-51.5); MEAN CORPUSCULAR HEMOGLOBIN 30 pg (27-31); MEAN CORPUSCULAR HGB CONC 33 % (32-36); MEAN CORPUSCULAR VOLUME 93 fL (79.0-98.0); MONOCYTES # (AUTO) 0.7 K/uL (0.0-1.0); MONOCYTES % (AUTO) 8.9 % (1.7-9.3); NEUTROPHILS # (AUTO) 4.4 K/uL (1.8-7.7); NEUTROPHILS % (AUTO) 55.1 % (40.0-70.0); PLATELET COUNT (AUTO) 208 K/uL (130-430); RED BLOOD CELL COUNT(AUTO) 4.33 MIL/uL (4.2-6.2); RED CELL DISTRIBUTION WIDTH 13.3 % (9.0-15.0)
[2023-04-18] MEDS: INSULIN REGULAR, HUMAN 100 UNITS/ML, 3 ML VIAL (humuLIN R) SUBCUT PRN (06:00)
[2023-04-18 06:09] LABS: FREE T4 (FREE THYROXINE) 1.1 ng/dL (0.6-1.6); THYROID STIMULATING HORMONE 0.85 uIu/mL (0.34-4.82)
[2023-04-18 08:13] LABS: CALCIUM 8.4 mg/dL (8.4-11.0); CREATININE 0.84 mg/dL (0.55-1.30); POTASSIUM 3.1 mmol/L (3.5-5.1)
[2023-04-18 08:33] LABS: ALBUMIN 2.9 g/dL (3.4-4.8); TOTAL BILIRUBIN 0.4 mg/dL (0.0-1.0); TOTAL PROTEIN, SERUM 6.1 g/dL (6.4-8.3)
[2023-04-18] MEDS: METOPROLOL SUCCINATE 25 MG TAB.SR.24H (TOPROL XL) PO SCH ×2 (09:00→09:25)
[2023-04-18] MEDS ORDERED: lisinopriL 20 MG TABLET PO SCH (09:00)
[2023-04-18] MEDS ORDERED: CLOPIDOGREL BISULFATE 75 MG TABLET PO SCH (09:00)
[2023-04-18] MEDS ORDERED: ASPIRIN 81 MG TABLET(ECOTRIN) PO SCH (09:00)
[2023-04-18] MEDS: metFORMIN HCL 500 MG TABLET PO SCH (09:09)
[2023-04-18] MEDS ORDERED: POTASSIUM CHLORIDE 20 MEQ TABLET.ER PO ONE (10:00)
[2023-04-18] MEDS ORDERED: POTASSIUM CHLORIDE 40 MEQ, LIDOCAINE JECT 2% PF 100 MG 50 MG in NS 250 ML IV ONE (11:00)
[2023-04-18] MEDS ORDERED: METO25TA3 PO ×2 (12:00)
[2023-04-18] MEDS ORDERED: cloNIDine HCL 0.1 MG TABLET PO ONE (15:45)
== END 2023-04-18 16:30 | disposition home or self-care (01) ==
LOC: SED 14:40 → INTOOBSV 16:52 → STU 16:52
PROVIDERS: ADMIT Specialist; ATTEND Specialist
DX: A08.4 Viral intestinal infection, unspecified (principal); E86.0 Dehydration; E87.6 Hypokalemia; I21.4 Non-ST elevation (NSTEMI) myocardial infarction; I10 Essential (primary) hypertension; E11.40 Type 2 diabetes mellitus with diabetic neuropathy, unspecified; R79.89 Other specified abnormal findings of blood chemistry; E66.9 Obesity, unspecified; E78.5 Hyperlipidemia, unspecified; Z86.73 Personal history of transient ischemic attack (TIA), and cerebral infarction without residual deficits; Z79.899 Other long term (current) drug therapy
CPT/HCPCS: 96361 ×4; 96365; 96366 ×2; 96375; 80053 ×2; 81000; 81015; 81001; 83690; 83735; 84100; 85025 ×2; 85610; 87040; 84484 ×3; 36415 ×3; 93005 ×3; 99291; 83605; 96372 ×2; 82962 ×2; 84439; 84443; 96367; J3475; J2405; G0378 ×3; J1815 ×2; J3480; J7050; 96374